=== PATIENT | male | born 1970 | race Caucasian/White ===

== ENCOUNTER 2023-09-12 11:23 | Emergency (ER) | payer OTHER ==
[2023-09-12 11:37] VITALS: BP 144/85; PULSE 104; RESP 18; TEMP 98.4; BMI 34.9
== END 2023-09-12 14:00 | disposition home or self-care (01) ==
LOC: JER 11:23
DX: R07.89 Other chest pain (principal)
CPT/HCPCS: 71046-TC-FY; 93005; 93010; 99284-25